=== PATIENT | female | born 1985 | race Caucasian/White ===

== ENCOUNTER → 2017-11-20 | Outpatient (CLI) | payer BC | LOC: FIMAGING 07:36 | PROVIDERS: ATTEND Obstetrics & Gynecology | DX: O43.122 Velamentous insertion of umbilical cord, second trimester (principal); O36.5920 Maternal care for other known or suspected poor fetal growth, second trimester, not applicable or unspecified; O99.282 Endocrine, nutritional and metabolic diseases complicating pregnancy, second trimester; E06.3 Autoimmune thyroiditis; Z3A.25 25 weeks gestation of pregnancy ==

== ENCOUNTER → 2017-12-05 | Outpatient (CLI) | payer BC | LOC: FIMAGING 11:28 | PROVIDERS: ATTEND Obstetrics & Gynecology | DX: O09.892 Supervision of other high risk pregnancies, second trimester (principal); O36.5930 Maternal care for other known or suspected poor fetal growth, third trimester, not applicable or unspecified; O43.122 Velamentous insertion of umbilical cord, second trimester; Z3A.27 27 weeks gestation of pregnancy ==

== ENCOUNTER → 2017-12-19 | Outpatient (CLI) | payer BC | LOC: FIMAGING 08:43 | PROVIDERS: ATTEND Obstetrics & Gynecology | DX: O36.5930 Maternal care for other known or suspected poor fetal growth, third trimester, not applicable or unspecified (principal); O43.123 Velamentous insertion of umbilical cord, third trimester; O99.283 Endocrine, nutritional and metabolic diseases complicating pregnancy, third trimester; E06.3 Autoimmune thyroiditis; Z3A.29 29 weeks gestation of pregnancy ==

== ENCOUNTER → 2018-01-04 | Outpatient (CLI) | payer BC | LOC: FIMAGING 12:15 | PROVIDERS: ATTEND Obstetrics & Gynecology | DX: O36.5930 Maternal care for other known or suspected poor fetal growth, third trimester, not applicable or unspecified (principal); Z3A.32 32 weeks gestation of pregnancy ==

== ENCOUNTER → 2018-01-16 | Outpatient (CLI) | payer BC | LOC: FIMAGING 08:45 | PROVIDERS: ATTEND Obstetrics & Gynecology | DX: O36.5930 Maternal care for other known or suspected poor fetal growth, third trimester, not applicable or unspecified (principal); O99.283 Endocrine, nutritional and metabolic diseases complicating pregnancy, third trimester; E03.2 Hypothyroidism due to medicaments and other exogenous substances; Z3A.29 29 weeks gestation of pregnancy; Z82.79 Family history of other congenital malformations, deformations and chromosomal abnormalities ==

== ENCOUNTER → 2018-01-30 | Outpatient (CLI) | payer BC | LOC: FIMAGING 12:13 | PROVIDERS: ATTEND Obstetrics & Gynecology | DX: O36.5930 Maternal care for other known or suspected poor fetal growth, third trimester, not applicable or unspecified (principal); O99.283 Endocrine, nutritional and metabolic diseases complicating pregnancy, third trimester; E06.3 Autoimmune thyroiditis; Z67.91 Unspecified blood type, Rh negative; Z3A.35 35 weeks gestation of pregnancy ==

== ENCOUNTER → 2018-02-13 | Outpatient (CLI) | payer BC | LOC: FIMAGING 08:32 | PROVIDERS: ATTEND Obstetrics & Gynecology | DX: O36.5930 Maternal care for other known or suspected poor fetal growth, third trimester, not applicable or unspecified (principal); O43.123 Velamentous insertion of umbilical cord, third trimester; O99.283 Endocrine, nutritional and metabolic diseases complicating pregnancy, third trimester; E06.3 Autoimmune thyroiditis; O32.1XX0 Maternal care for breech presentation, not applicable or unspecified; O09.893 Supervision of other high risk pregnancies, third trimester; Z67.91 Unspecified blood type, Rh negative; Z3A.37 37 weeks gestation of pregnancy; Z82.79 Family history of other congenital malformations, deformations and chromosomal abnormalities ==